=== PATIENT | female | born 1975 | race Caucasian/White ===

== ENCOUNTER 2020-07-30 13:54 | Outpatient (CLI) | payer OTHER, SELFPAY ==
--- NOTE | ~2020-07-30 | MR_ITS ---
EXAMINATION: MR lumbar spine wo con DATE: 07/30/2020 15:30 INDICATION: Lumbago with right-sided sciatica TECHNIQUE: Magnetic resonance imaging (MRI) of the lumbar spine was performed without intravenous con trast. Sequences included sagittal T2-weighted FSE, sagittal T2-weighted FS FSE, sagittal T1-weighted FSE, and axial T2-weighted FSE. COMPARISON: None FINDINGS: 15 degrees thoracolumbar levoscoliosis. 1-2 mm retrolisthesis L4 on L5. Vertebral body heights are no rmal. Normal marrow signal. Moderate disc height loss at T11-T12, mild disc height loss at L3-L4 and L4-L5. The conus medullaris terminates at L2. There is normal signal in the caudal spinal cord. Para vertebral soft tissues are unremarkable. The following disc levels are specifically discussed: T12-L1: The disc does not extend beyond the endplate margin. There is no facet joint osteoarthritis. There is minimal bilateral neural foraminal stenosis. There is no central canal stenosis. L1-L2: The disc does not extend beyond the endplate margin. There is mild left and minimal right face t joint osteoarthritis. There is no neural foraminal stenosis. There is no central canal stenosis. L2-L3: The disc does not extend beyond the endplate margin. There is mild bilateral facet joint osteo arthritis. There is no neural foraminal stenosis. There is no central canal stenosis. L3-L4: Disc is bulging with superimposed annular fissure at the right foraminal zone. There is mild l eft and mild to moderate right facet joint osteoarthritis. There is mild bilateral neural foraminal s tenosis. There is mild central canal stenosis. L4-L5: Disc is bulging. There is mild bilateral facet joint osteoarthritis. There is mild to moderate bilateral neural foraminal stenosis. There is mild central canal stenosis. L5-S1: The disc does not extend beyond the endplate margin. There is mild bilateral facet joint osteo arthritis. There is no neural foraminal stenosis. There is no central canal stenosis. IMPRESSION: 1. Mild lumbar spondylosis. Reviewed, dictated and finalized at location A. IMPRESSION: 1. Mild lumbar spondylosis.
== END 2020-07-30 13:55 | disposition home or self-care (01) ==
PROVIDERS: PCP Family Medicine; Visit Provider Family Medicine
DX: M54.41 Lumbago with sciatica, right side (principal); M54.2 Cervicalgia; M47.816 Spondylosis without myelopathy or radiculopathy, lumbar region
CPT/HCPCS: 72148

== ENCOUNTER 2020-08-13 09:00 | Outpatient (RCR) | payer OTHER, SELFPAY ==
--- NOTE | 2020-06-17 11:47 | PTOPEVAL ---
Thank you for referring Marilee De Jesus to [facility].? The patient is scheduled to be seen for therapy? 1-2 x/week for 8 weeks. Please review, sign, date and return this plan of care GERA. I agree with and certify that the following plan of care is medically necessary. Referring Physician Date Attending Provider: Janay Garcia, MD Referring Provider: Janay Garcia, MD Physical Therapy Evaluation Diagnosis chronic neck and back pain Onset 2009- neck, 1999 back Additional Evaluation Detail HEP: trunk flex, knee to chest and noé leg lift no neck exercises. Subjective Information neck: Reports she has been Query Text:As Reported By Patient/ having issues since 2009. C/o Family muscle tension with radiating pain into upper back, right UE and DE [place] CRUZ. She has increased pain with looking at her phone, watching TV or holding head in certain position. She has difficulty sleeping due to pain. Limited tolerance with IADL's and ADL's. Back: started in 1999. Denies injury to start her pain. She has increased pain with all activities of IADL's and ADL's. She is limited to lifting <8# due to pain. She has increased pain with standing and walking. Previous Treatments Previous Treatments For This Problem 2013 [facility] Pain Assessment Self Report Pain Assessment Bilateral Neck Reported Pain Level 4 Pain Description Numbness,Radiating,Tightness, Tingling Pain Radiation Right Arm Pain Frequency Chronic,Continuous Lowest Pain Intensity 2 Greatest Pain Intensity 6 Pain Aggravating Factors ADL's,Lifting,Prolonged Position,Sitting Pain Behaviors Anxious,Restless Lower Back Reported Pain Level 5 Pain Description Burning,Numbness,Pulling, Radiating,Sharp,Tender on Palpation,Tingling Pain Radiation Right Leg Pain Frequency Chronic,Continuous Lowest Pain Intensity 5 Greatest Pain Intensity 10 Pain Aggravating Factors ADL's,Bending,Exercise/ Activity,Lifting,Palpation, Prolonged Position,Walking,
--- NOTE | 2020-07-02 11:55 | PCPTNOTE ---
Patient called & cancelled scheduled appointment this date due to dog . She rescheduled for next week.
--- NOTE | 2020-08-13 13:21 | PTOPEVAL ---
Thank you for referring Marilee De Jesus to [facility][Note 3].?See summary below for objective measure and progress with therapy. The patient is scheduled to be seen for therapy?1 x/week for 4 weeks. Please review, sign, date and return this plan of care GERA. I agree with and certify that the following plan of care is medically necessary. Referring Physician Date Attending Provider: Janay Garcia, MD Referring Provider: Janay Garcia, MD Physical Therapy Progress Note Diagnosis chronic neck and back pain Onset 2009- neck, 1999 back Additional Evaluation Detail HEP: trunk flex, knee to chest and noé leg lift no neck exercises. Subjective Information neck: Reports she has been Query Text:As Reported By Patient/ having issues since 2009. C/o Family muscle tension with radiating pain into upper back, right UE and [place] CRUZ. Reports only slight improved pain and symptoms. She cont to have increased pain with looking at her phone , watching TV or holding head in certain position. She has difficulty sleeping due to pain with only 3 hours of sleep. Limited tolerance with IADL's, but is able to modify task to improve performance with ADL's. Reports improved shoulder pain. Reports improved radiating symptoms into UE's, but cont weakness. Back: started in 1999. Denies injury to start her pain. She has continued increased pain with all activities of IADL's and ADL's that has not improved with therapy.. She is limited to lifting <4# due to pain. She has increased pain with standing and walking. She tries to perform HEP 5-6x/ wk depending on DE [place] CRUZ. Pain Assessment Self Report Pain Assessment Bilateral Neck Reported Pain Level 5 Pain Frequency Chronic,Continuous Lowest Pain Intensity 4 Greatest Pain Intensity 6 Pain Behaviors Anxious,Grimacing,Guarding, Limping,Restless Lower Back Reported Pain Level 7 Pain Frequency Chronic,Continuous Lowest Pain Intensity
--- NOTE | 2020-09-03 08:14 | PCPTNOTE ---
Admitting Provider: Attending Provider: Janay Garcia, Patient:Marilee De Jesus Date of :1975 Discharge Therapy Note Patient has not returned for any further treatments since 08/13/2020, therefore she will be discharged at this time. Patient?s initial visit was on 06/17/2020 and she had a total of 4 visits with 1 no show. She did not reschedule additional therapy visits after her last reassessment visit. The goals have been not met due to poor compliance with therapy services. Thank you for referring this patient to [facility]. Please review, sign, date and return this discharge summary GERA. I have been updated about the patient's current status and I agree with discharge from the above service at this time. Referring Physician Date
== END 2020-09-03 10:44 | disposition home or self-care (01) ==
LOC: ANHPT 09:00
PROVIDERS: PCP Family Medicine; Referring Provider Family Medicine; Visit Provider Family Medicine
DX: M54.2 Cervicalgia (principal)
CPT/HCPCS: 97014; 97110; 97163; G0283

== ENCOUNTER 2021-06-18 14:05 | Outpatient (CLI) | payer OTHER, SELFPAY ==
--- NOTE | ~2021-06-18 | XR_ITS ---
EXAMINATION: XR chest 2V DATE: 06/18/2021 14:16 INDICATION: Bronchitis. Cough. TECHNIQUE: Frontal and lateral views of the chest were obtained. COMPARISON: None. FINDINGS: The chest demonstrates clear lungs without pneumonia, pleural effusion, or pneumothorax. Th e heart size is normal. IMPRESSION: 1. No acute cardiopulmonary disease. Reviewed, dictated and finalized at location A.
== END 2021-06-18 14:06 | disposition home or self-care (01) ==
LOC: ANHIMG 14:08
PROVIDERS: PCP Internal Medicine Gastroenterology; Visit Provider Internal Medicine Gastroenterology
DX: J40 Bronchitis, not specified as acute or chronic (principal)
CPT/HCPCS: 71046

== ENCOUNTER 2021-07-02 14:30 | Outpatient (RCR) | payer OTHER, SELFPAY ==
--- NOTE | 2021-06-05 15:02 | PTOPEVAL ---
PHYSICAL THERAPY INITIAL EVALUATION. Thank you for referring Marilee De Jesus to [facility].? The patient is scheduled to be seen for therapy? 2x/week for 4 weeks. Please review, sign, date and return this plan of care GERA. I agree with and certify that the following plan of care is medically necessary. Referring Physician Date Attending Provider: PHYSICIAN NOT ON STAFF *PT Outpatient Evaluation Start: 06/05/21 Evaluation Information Diagnosis Neck pain Subjective Information Pt states she has had neck Query Text:As Reported By Patient/ pain since 1999. Pt states she Family has neck pain mainly on the R side, it states at the base of her skull and down into the shoulder. The pressure causes occasional pain to shoot down the arm into the hand, and she has pretty consistent numbness in her index and middle finger. Pt states she saw a chiropractor for 1x/wk for 6 weeks in 2012, she got relief for the day and her pain is back to its baseline the following day. Pain Assessment Right Lower Neck Reported Pain Level 6 Pain Description Aching,Numbness,Sharp,Shooting ,Stabbing,Throbbing,With Movement Pain Radiation Right Arm,Right Elbow Pain Frequency Chronic,Intermittent Lowest Pain Intensity 3 Greatest Pain Intensity 8 Pain Aggravating Factors Exercise/Activity Pain Behaviors Restless Additional Pain Comments Rocking in sitting Cervical and Lumbar ROM Cervical ROM Cervical Flexion (0-60) 38 Query Text:Active in Degrees Cervical Extension (0-70) 12 Query Text:Active in Degrees Cervical Lateral Flexion Right (0-50) 20 Query Text:Active in Degrees Cervical Lateral Flexion Right (0-50) 35 Query Text:Passive in Degrees Cervical Lateral Flexion Left (0-50) 22 Query Text:Active in Degrees Cervical Lateral Flexion Left (0-50) 35 Query Text:Passive in Degrees Cervical Rotation Right (0-90) 26 Query Text:Active in Degrees Cervical Rotation Right (0-90) 50 Query Text:Passive in Degrees Cervical Rotation Left (0-90) 18 Query Text:Active in Degrees Cervical Rotation Left (0-90) 50 Query Text:Passive in Degrees Cervical ROM 50% of Normal Cervical ROM Comments Guarding and upper trap
--- NOTE | 2021-06-16 11:11 | PCPTNOTE ---
Patient called & cancelled scheduled appointment this date due to an unknown reason.
--- NOTE | 2021-06-25 13:39 | PCPTNOTE ---
Patient called & cancelled scheduled appointment this date due to being sick.
--- NOTE | 2021-07-02 16:11 | PTOPEVAL ---
PHYSICAL THERAPY PROGRESS REPORT AND DISCHARGE REPORT. Thank you for referring Marilee De Jesus to [facility].? The patient is to be discharged from skilled physical therapy. Please review, sign, date and return this plan of care GERA. I agree with and certify that the following plan of care is medically necessary. Referring Physician Date Attending Provider: PHYSICIAN NOT ON STAFF Evaluation Information Diagnosis Neck pain Onset chronic Subjective Information Pt states she had good days Query Text:As Reported By Patient/ and bad days regarding her Family neck pain. She states the stretches help to loosen her neck and make it feel better, but then the pain is back when she wakes up in the morning. She reports the numbness and tingling in her hand is about the same. Pt states she recently pulled something in her shoulder and it has been bothering her recently. Pain Assessment Self Report Pain Assessment Right Lower Neck Reported Pain Level 5 Greatest Pain Intensity 7 Cervical and Lumbar ROM Cervical Flexion (0-60) 46 Cervical Extension (0-70) 40 Cervical Lateral Flexion Right (0-50) 45 Cervical Lateral Flexion Right (0-50) 50 Cervical Lateral Flexion Left (0-50) 32 Cervical Lateral Flexion Left (0-50) 45 Cervical Rotation Right (0-90) 56 Cervical Rotation Right (0-90) 75 Cervical Rotation Left (0-90) 41 Cervical Rotation Left (0-90) 60 Cervical ROM 75% of Normal Upper Extremity Muscle Strength Testing Gross Upper Extremity Strength Comments B UEs grossly 4+/5, except R shoulder flexion 4/5, pain with resisted movements on the R UE Posture Posture Evaluation View Anterior Head/C-Spine Posture Neutral Position Lumbar Spine Posture Neutral Scapula Posture (R) Winged PT Clinical Summary Marilee presents to therapy today for her progress report follow 6 physical therapy visits to treat her chronic neck pain. Today she demonstrates significant improvement in her cervical active and passive ROM, mild improvements in her UE strength, and decreased upper trap activation during a
== END 2021-07-03 10:15 | disposition home or self-care (01) ==
LOC: ANHPT 14:30
PROVIDERS: PCP Family Medicine
DX: M54.2 Cervicalgia (principal)
CPT/HCPCS: 97014; 97110; 97112; 97140; 97161; G0283

== ENCOUNTER 2021-07-27 08:21 | Outpatient (CLI) | payer OTHER, SELFPAY ==
--- NOTE | ~2021-07-27 | MM_ITS ---
EXAMINATION: MM screening giovany BI w suzi HISTORY: Screening TECHNIQUE: Craniocaudal and mediolateral oblique 3-D tomosynthesis images were obtained and synthetic 2-D images were generated. CAD analysis was submitted and interpreted. COMPARISON: No prior mammogram is available for comparison at this institution. BREAST PARENCHYMAL COMPOSITION: The breasts are heterogenously dense, which may obscure small masses FINDINGS: There is no evidence of suspicious mass, calcification, or architectural distortion to sugg est malignancy in either breast. There has been no suspicious interval change. IMPRESSION: 1. No mammographic evidence of malignancy. 2. Recommend routine screening mammography in one year. BI-RADS Category 1: Negative Reviewed, dictated and finalized at location A.
== END 2021-07-27 08:22 | disposition home or self-care (01) ==
LOC: ANHIMG 08:23
PROVIDERS: PCP Internal Medicine Gastroenterology; Visit Provider Physician Assistant
DX: Z12.31 Encounter for screening mammogram for malignant neoplasm of breast (principal)
CPT/HCPCS: 77063; 77067

== ENCOUNTER 2021-10-26 07:30 | Outpatient (RCR) | payer OTHER, SELFPAY ==
--- NOTE | 2021-09-10 09:50 | PTOPEVAL ---
PHYSICAL THERAPY EVALUATION AND PLAN OF CARE Thank you for referring Marilee De Jesus to [facility].? The patient is scheduled to be seen for therapy?1-2x/week for 8 weeks. Please review, sign, date and return this plan of care GERA. I agree with and certify that the following plan of care is medically necessary. Referring Physician Date Attending Provider: Stephane Gregorio Diagnosis neck pain, low back pain Onset chronic Subjective Information States no etiology of injury. Query Text:As Reported By Patient/ Started with middle back pain Family that has now spread up and down. Pain very much on the right side vs left. The low back pain will radiate across the right hip and groin and go down the leg. The leg will give out and sometimes she will fall. Pain in right side of neck goes up behind the head in a elias's horn to the right eye. Some ringing in the ears. has participated in physical therapy for both neck and back and states that it has been helpful for muscle tension but does not get rid of stabbing pain. States that she gets headaches every day most of the day. Diagnostic Tests MRI For This Problem Yes: multiple bulging discs Self Report Pain Assessment Spine, Lumbar Reported Pain Level 6 Pain Description Burning,Tightness Pain Behaviors Anxious,Restless Neck Reported Pain Level 6 Pain Description Burning,Tightness Pain Frequency Chronic,Continuous Pain Behaviors Anxious,Restless Pain Score Pain Score 6,6: Self Report Interventions Used Interventions Used By Clinicians Exercise,Heat,Mobilization, Manual Therapy Techniques Pain Relief Interventions Used By Medication,TENS Patient Cervical and Lumbar ROM Cervical ROM Cervical Flexion (0-60) 32 Query Text:Active in Degrees Cervical Extension (0-70) 30 Query Text:Active in Degrees Cervical Rotation Right (0-90) 48 Query Text:Active in Degrees Cervical Rotation Left (0-90) 40 Query Text:Active in Degrees Lumbar ROM Lumbar Flexion (0-90) 10 Query Text:Active in Degrees Lumbar Flexion Active Waist Query Text:Hands to:
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
--- NOTE | 2021-09-25 09:23 | PCPTNOTE ---
Addendum entered by Rebekah Stelring, [employer]OUT WORKER 09/25/21 09:24: Pt was present for this appointment. Note recorded in error. Original Note: Patient called & cancelled scheduled appointment this date due to a family emergency.
--- NOTE | 2021-10-19 12:34 | PCPTNOTE ---
Patient called & cancelled scheduled appointment this date due to daughter having surgery.
--- NOTE | 2021-10-26 08:20 | PTOPEVAL ---
PHYSICAL THERAPY DISCHARGE NOTE Thank you for referring Marilee De Jesus to [facility].? Please review, sign, date and return this plan of care GERA. I agree with and certify that the following plan of care is medically necessary. Referring Physician Date Attending Provider: Stephane Gregorio Diagnosis neck pain, low back pain Onset chronic Subjective Information states that overall she feels Query Text:As Reported By Patient/ better. States that she has Family ups and downs and she does her exercises and it helps to unlock things. She is getting injections on 10/28/21. Self Report Pain Assessment Spine, Lumbar Reported Pain Level 4 Pain Description Burning,Tightness Pain Behaviors Anxious,Restless Neck Reported Pain Level 7 Pain Description Burning,Tightness Pain Frequency Chronic,Continuous Pain Behaviors Anxious,Restless Additional Pain Comments into right shoulder Pain Score Pain Score 4,7: Self Report Interventions Used Interventions Used By Clinicians Education,Exercise,Manual Therapy Techniques Cervical and Lumbar ROM Cervical ROM Cervical Flexion (0-60) 32 Query Text:Active in Degrees Cervical Extension (0-70) 36 Query Text:Active in Degrees Cervical Rotation Right (0-90) 60 Query Text:Active in Degrees Cervical Rotation Left (0-90) 60 Query Text:Active in Degrees Upper Extremity Range of Motion General Upper Extremity Range of Motion Gross Upper Extremity Range of Motion elevation: 130deg - no changes Comments abduction: 145deg - no changes internal rotation behind back: left>right - no changes Lower Extremity Muscle Strength Testing General Lower Extremity Strength Gross Lower Extremity Strength left LE: generally 4/5 right LE: grossly 4/5 Upper Extremity Muscle Strength Testing General Upper Extremity Strength Gross Upper Extremity Strength Comments right shoulder: 4/5 left shoulder: 4+/5 Palpation Assessment Palpation Palpation moderate tension and tenderness to right quadratus lumborum and glutes, right cervical muscles; trigger points noted to bilateral upper trapezius and supraspinatus Gait Assessment Gait Pattern Assessment Gait Pattern Antalgic Gait Other Gait Observations demonstrates improved gait
== END 2021-10-26 10:37 | disposition home or self-care (01) ==
LOC: ANHPT 07:30
PROVIDERS: PCP Internal Medicine Gastroenterology
DX: M54.50 Low back pain, unspecified (principal); M54.2 Cervicalgia
CPT/HCPCS: 97110; 97112; 97116; 97140; 97163; 97530